=== PATIENT | female | born 1985 | race Caucasian/White ===

== ENCOUNTER 2016-07-22 17:59 | Emergency (ER) | payer OTHER ==
[2016-07-22 18:05] VITALS: BP 134/79; PULSE 85; RESP 20; TEMP 97.7
--- NOTE | 2016-07-22 18:13 | ED ---
Upper Extremity HPI - General Chief Complaint: Extremity Injury, Upper Stated Complaint: finger injury Time Seen by Provider: 07/22/16 18:05 Source: patient, RN notes reviewed Mode of arrival: ambulatory Limitations: no limitations - History of Present Illness Initial Comments: 31-year-old female presents to emergency room chief complaint of right finger injury. Patient states she was wrestling and THEN she had pain to the right finger. Patient states that ring finger at the PIP joint. Patient has noticed some swelling and discoloration. Patient states she has no loss of. Patient states her pain is moderate worsening movement or touch. Patient denies any other injuries from the incident.Patient denies any recent fever, chills, shortness of breath, chest pain, back pain, abdominal pain, nausea vomiting, numbness or tingling, dysuria or hematuria, constipation or diarrhea, headaches or visual changes, or any other current symptoms. - Related Data Home Medications Medication Instructions Recorded Confirmed No Known Home Medications [No 07/22/16 07/22/16 Known Home Medications] Allergies Allergy/AdvReac Type Severity Reaction Status Date / Time No Known Allergies Allergy Verified 07/22/16 18:05 Review of Systems ROS Statement: Those systems with pertinent positive or pertinent negative responses have been documented in the HPI. ROS Other: All systems not noted in ROS Statement are negative. Past Medical History Past Medical History: No Reported History History of Any Multi-Drug Resistant Organisms: None Reported Past Surgical History: Section Past Psychological History: No Psychological Hx Reported Smoking Status: Never smoker Past Alcohol Use History: None Reported Past Drug Use History: None Reported General Exam - General Exam Comments Initial Comments: General: The patient is awake and alert, in no distress, and does not appear acutely ill. Neck: The neck is supple, there is no tenderness. Cardiovascular: There is a regular rate and rhythm. No murmur, rub or gallop is appreciated. Respiratory: Lungs are clear to auscultation, respirations are non-labored, breath sounds are equal. No wheezes, stridor, rales, or rhonchi. Musculoskeletal: Sensation intact to plus pulses. Right external. Range of motion of right wrist. Patient has full range motion of the right hand besides the ring finger. Patient has pain with range of motion of the DIP joint. Patient has limited range of motion to the PIP joint due to discomfort. There is some swelling and ecchymosis noted. Less than 2 capillary refill. Neurological: CN II-XII intact, There are no obvious motor or sensory deficits. Coordination appears grossly intact. Speech is normal. Skin: Skin is warm and dry and no rashes or lesions are noted. Psychiatric: Normal mood and affect. Limitations: no limitations Course Vital Signs 07/22/16 18:04 Temperature 97.7 F Pulse Rate 85 Respiratory 20 Rate Blood Pressure 134/79 O2 Sat by Pulse 98 Oximetry Procedures - Orthopedic Splinting/Casting Injury #1 Side: right Upper Extremity Injury Location: finger Upper Extremity Immobilizer: aluminum form splint Medical Decision Making - Medical Decision Making 31-year-old female presents emergency Department chief complaint of right finger injury. At this time patient does appear to have a finger fracture. At this time we discussed follow-up with a week. Patient is flexor. Discussed return parameters on the patient's family's questions. Feeling. Jc on questions have been answered. They will be discharged. - Radiology Data Radiology results: image reviewed Interpreted by me: Interpreted by me: Right ring finger xray: 3 view, fracture to the proximal phalange he at the PIP joint of the fourth digit, no dislocation, no bony lesions, no foreign bodies, no soft tissue damage. Waiting official radiology read. Disposition Clinical Impression: Finger fracture, right Disposition: HOME SELF-CARE Condition: Stable Instructions: Finger Fracture (ED) Additional Instructions: Please use medication as discussed. Please follow up with family doctor if symptoms have not improved over the next two days. Please return to the emergency room if your symptoms increase or worsen or for any other concerns. Referrals: Criss Wallis DO [Primary Care Provider] - 1-2 days Yonathan Vang DO [Doctor of Osteopathic Medicine] - 1-2 days Time of Disposition: 18:32
--- NOTE | 2016-07-22 18:40 | XR ---
EXAMINATION TYPE: XR finger RT DATE OF EXAM: 07/22/2016 6:23 PM COMPARISON: NONE HISTORY: Pain and swelling TECHNIQUE: 3 views FINDINGS: There is a 2 x 1 mm chip fracture of the anterior base of the middle phalanx of the ring fi nger right hand. There is no dislocation. Is mild soft tissue swelling. IMPRESSION: Nondisplaced chip fracture of the ring finger as above. No dislocation.
== END 2016-07-22 18:38 | disposition home or self-care (01) ==
LOC: EC 17:59
DX: S62.614A Displaced fracture of proximal phalanx of right ring finger, initial encounter for closed fracture (principal); X58.XXXA Exposure to other specified factors, initial encounter; Y93.72 Activity, wrestling
CPT/HCPCS: 29125; 99283

== ENCOUNTER → 2016-11-07 | Outpatient (CLI) | payer OTHER ==
--- NOTE | 2016-11-07 12:23 | US ---
EXAMINATION TYPE: US axilla extremity LT DATE OF EXAM: 11/07/2016 COMPARISON: NONE CLINICAL HISTORY: R22.9 Nodule. Patient feels palp lt axilla, took a course of antibiotics and area decreased in size but is still there. Scanned left axilla directly over where patient feels palpable, there is a 1.0 x 0.4 x 0.8cm hypoecho ic area with echogenic center and vascularity, appears as node. IMPRESSION: PROBABLE LESION APPEARS TO REPRESENT A LYMPH NODE.
== END | disposition home or self-care (01) ==
LOC: RADUSWWP 12:00
PROVIDERS: ATTEND Family Medicine
DX: R22.9 Localized swelling, mass and lump, unspecified (principal)

== ENCOUNTER → 2016-12-04 | Outpatient (CLI) | payer OTHER ==
--- NOTE | 2016-12-08 08:54 | MM ---
Reason for exam: clinical finding. Indicated problem(s): palpable abnormality in the right breast. Physical Findings: Nurse did not find any significant physical abnormalities on exam. [facility] Diagnostic Mammo w CAD DYLAN Bilateral CC and MLO view(s) were taken. There are scattered fibroglandular densities. No suspicious mass, calcifications or area of architectural distortion. No change from the prior exam. These results were verbally communicated with the patient and result sheet given to the patient on 12/04/16. ASSESSMENT: Negative, BI-RAD 1 RECOMMENDATION: Routine screening mammogram of both breasts at age 40. (or earlier if clinically indicated). AWAD
== END | disposition home or self-care (01) ==
LOC: RADMAMWWP 10:24
PROVIDERS: ATTEND Family Medicine
DX: N63 Unspecified lump in breast (principal)